=== PATIENT | female | born 1980 | race American Indian/Alaskan Native ===

== ENCOUNTER 2018-02-26 13:57 | Emergency (ER) | payer SELFPAY ==
[2018-02-26] MEDS ORDERED: DELTASONE PO ONE (15:19)
[2018-02-26] MEDS ORDERED: ATROVENT IH ONE (15:19)
[2018-02-26] MEDS ORDERED: PROVENTIL IH ONE (15:19)
[2018-02-26] MEDS ORDERED: TESSALON PERLES PO ONE (15:20)
--- NOTE | 2018-02-26 16:32 | XRay Report ---
FINAL REPORT EXAM: XR CHEST ROUTINE 2V HISTORY: sob, wheezing TECHNIQUE: 2 views of the chest. PRIORS: None. FINDINGS: The cardiomediastinal silhouette appears normal. The lungs are clear. The bones and soft tissues are unremarkable. IMPRESSION: No evidence of acute cardiopulmonary disease
--- NOTE | 2018-02-26 16:59 | Emergency Department Report ---
ED Asthma HPI - General Chief Complaint: Dyspnea/Respdistress Stated Complaint: DIFFICULTY BREATHING/CHEST PAIN Time Seen by Provider: 02/26/18 15:14 Source: patient Mode of arrival: Ambulatory Limitations: No Limitations - History of Present Illness Initial Comments: 37-year-old female with a past medical history asthma and (insulin and pills) diabetes presents to the Hospital complaining of wheezing or chest tightness 1 week progressively worsening. Chest tightness moderate in intensity and worse with inspiration during wheezing episodes. Patient also has sharp sternal chest pain as well for palpation, deep inspiration, and movement. Patient has an inhaler at home is not helping. Productive of clear sputum. No fever. No calf tenderness, edema, recent travel, history of DVT, or control pill use. Denies previous history of intubations. - Related Data Previous Rx's Medication Instructions Recorded Last Taken Type ALBUTEROL Inhaler [ProAir HFA 2 puff IH QID PRN #1 inhalation 02/26/18 Unknown Rx Inhaler] Azithromycin [Zithromax Z-RODOLFO] 1 dose PO DAILY 5 Days tab 02/26/18 Unknown Rx Benzonatate [Tessalon Perles] 100 mg PO Q8HR PRN #30 capsule 02/26/18 Unknown Rx Ibuprofen [Motrin] 800 mg PO Q8HR PRN #30 tablet 02/26/18 Unknown Rx amLODIPine [Norvasc] 5 mg PO DAILY #30 tab 02/26/18 Unknown Rx predniSONE [Deltasone] 40 mg PO QDAY 5 Days tab 02/26/18 Unknown Rx traMADol [Ultram 50 MG tab] 50 mg PO Q6HR PRN #20 tablet 02/26/18 Unknown Rx Allergies Allergy/AdvReac Type Severity Reaction Status Date / Time No Known Allergies Allergy Unverified 02/26/18 14:09 ED Review of Systems ROS: Stated complaint: DIFFICULTY BREATHING/CHEST PAIN Other details as noted in HPI Comment: All other systems reviewed and negative ED Past Medical Hx - Past Medical History Hx Diabetes: Yes Hx Asthma: Yes - Surgical History Past Surgical History?: No - Social History Smoking Status: Never Smoker Substance Use Type: None - Medications Home Medications: Home Medications Medication Instructions Recorded Confirmed Last Taken Type ALBUTEROL Inhaler [ProAir HFA 2 puff IH QID PRN #1 inhalation 02/26/18 Unknown Rx Inhaler] Azithromycin [Zithromax Z-RODOLFO] 1 dose PO DAILY 5 Days tab 02/26/18 Unknown Rx Benzonatate [Tessalon Perles] 100 mg PO Q8HR PRN #30 capsule 02/26/18 Unknown Rx Ibuprofen [Motrin] 800 mg PO Q8HR PRN #30 tablet 02/26/18 Unknown Rx amLODIPine [Norvasc] 5 mg PO DAILY #30 tab 02/26/18 Unknown Rx predniSONE [Deltasone] 40 mg PO QDAY 5 Days tab 02/26/18 Unknown Rx traMADol [Ultram 50 MG tab] 50 mg PO Q6HR PRN #20 tablet 02/26/18 Unknown Rx ED Physical Exam - General Limitations: No Limitations - Other Other exam information: General: No limitations, patient is alert in no acute distress Head exam: Atraumatic, normocephalic Eyes exam: Normal appearance ENT: Moist mucous membrane, normal oropharynx Neck exam: Normal inspection, full range of motion, no meningismus nontender Respiratory exam: Diminished breath sounds bilaterally, mild expiratory wheeze, cough or deep inspiration. Reproducible sternal chest wall tenderness Cardiovascular: Normal rate and rhythm Abdomen: Soft, nondistended, and nontender, with normal bowel sounds, no rebound, or guarding Extremity: Full range of motion normal inspection no deformity, no calf tenderness or edema Back: Normal Inspection, full range of motion, no tenderness Neurologic: Alert, oriented x3, cranial nerves intact, no motor or sensory deficit Psychiatric: normal affect, normal mood Skin: Warm, dry, intact ED Course Vital Signs 02/26/18 02/26/18 02/26/18 14:07 14:44 14:46 Temperature 98.8 F Pulse Rate 95 H 60 69 Pulse Rate [ Bilateral] Respiratory 18 21 29 H Rate Respiratory Rate [Bilateral ] Blood Pressure 156/101 Blood Pressure [Left] O2 Sat by Pulse 97 95 Oximetry 02/26/18 02/26/18 02/26/18 15:00 15:15 15:16 Temperature 98.1 F Pulse Rate 47 L 61 64 Pulse Rate [ Bilateral] Respiratory 13 22 17 Rate Respiratory Rate [Bilateral ] Blood Pressure 156/84 164/103 Blood Pressure 156/84 [Left] O2 Sat by Pulse 95 96 Oximetry 02/26/18 02/26/18 02/26/18 15:30 15:34 15:45 Temperature Pulse Rate 59 L 56 L Pulse Rate [ 94 H Bilateral] Respiratory 12 12 Rate Respiratory 16 Rate [Bilateral ] Blood Pressure 160/107 149/87 Blood Pressure [Left] O2 Sat by Pulse 95 96 Oximetry 02/26/18 16:12 Temperature Pulse Rate Pulse Rate [ 92 H Bilateral] Respiratory Rate Respiratory 16 Rate [Bilateral ] Blood Pressure Blood Pressure [Left] O2 Sat by Pulse Oximetry - Reevaluation(s) Reevaluation #1: 02/26/18 17:49 Pt received albuterol she received albuterol, Atrovent, prednisone, and Tessalon Perles with improvement in breathing or respiratory symptoms. She continues to have reproducible sternal chest wall tenderness. Patient is driving therefore Toradol IM ordered. ED Medical Decision Making - Radiology Data Radiology results: report reviewed Read by radiologist chest x-ray: No acute findings - Medical Decision Making Asthma exacerbation Patient received albuterol, Atrovent, prednisone, and Tessalon Perles with improvement Chest x-ray negative for infection Chest pain suggestive of costochondritis. Will be prescribed Motrin and tramadol. Denies history of seizures. Patient be treated for bronchitis/asthma Z-Rodolfo, prednisone, albuterol will be prescribed. Patient warned that prednisone may increase blood glucose and she will continue to monitor her sugar Patient blood pressure was elevated in the ED and she states it has been elevated this week when she checks it at the drugstore. She will be started on Norvasc and outpatient follow-up recommended - Differential Diagnosis asthma, pneumonia, bronchitis Critical Care Time: No Critical care attestation.: If time is entered above; I have spent that time in minutes in the direct care of this critically ill patient, excluding procedure time. ED Disposition Clinical Impression: Acute asthmatic bronchitis, Hypertension, Costochondritis Disposition: DC-01 TO HOME OR SELFCARE Is pt being admited?: No Condition: Stable Instructions: Hypertension (ED), Acute Bronchitis (ED), Costochondritis (ED) Additional Instructions: Continue to monitor your blood sugars very closely while taking the prednisone because prednisone may cause an increase in your blood sugar level. Your blood pressure was elevated today. You were started on blood pressure medication. Continue to monitor your blood pressure at home. It is very important that you follow up with the primary care doctor for further evaluation and blood pressure monitoring to determine if the current medication should be continued or adjusted. Please return if symptoms worsen as indicated by your discharge instructions. Prescriptions: ALBUTEROL Inhaler [ProAir HFA Inhaler] 2 puff IH QID PRN #1 inhalation PRN Reason: Shortness Of Breath amLODIPine [Norvasc] 5 mg PO DAILY #30 tab Azithromycin [Zithromax Z-RODOLFO] 1 dose PO DAILY 5 Days tab Benzonatate [Tessalon Perles] 100 mg PO Q8HR PRN #30 capsule PRN Reason: Cough Ibuprofen [Motrin] 800 mg PO Q8HR PRN #30 tablet PRN Reason: Pain predniSONE [Deltasone] 40 mg PO QDAY 5 Days tab traMADol [Ultram 50 MG tab] 50 mg PO Q6HR PRN #20 tablet PRN Reason: Pain Referrals: [facility] [Provider Group] - 3-5 Days TEMI PERRY MD [Staff Physician] - 3-5 Days Forms: Work/School Release Form(ED) Time of Disposition: 18:02
[2018-02-26] MEDS ORDERED: TORADOL IM ONE (17:48)
[2018-02-26] MEDS ORDERED: NORVASC PO ONE (18:00)
[2018-02-26 18:57] VITALS: BP 146/82
== END 2018-02-26 18:57 | disposition home or self-care (01) ==
LOC: ED 13:57
DX: J45.909 Unspecified asthma, uncomplicated (principal); M94.0 Chondrocostal junction syndrome [Tietze]; I10 Essential (primary) hypertension; E11.9 Type 2 diabetes mellitus without complications
CPT/HCPCS: 71046; 94644; 96372; 99283; J1885; J7512

== ENCOUNTER 2018-11-18 22:54 | Emergency (ER) | payer SELFPAY ==
[2018-11-18 23:55] LABS: Basophils # (Auto) 0.1 K/mm3 (0.0-0.1); Basophils % (Auto) 0.9 % (0.0-1.8); Eosinophils % (Auto) 0.6 % (0.0-4.3); Hematocrit 32.7 % (30.3-42.9); Hemoglobin 11.2 gm/dl (10.1-14.3); Lymphocytes # (Auto) 3.5 K/mm3 (1.2-5.4); Lymphocytes % (Auto) 48.9 % (13.4-35.0); Mean Corpuscular HGB Conc 34 % (30-34); Mean Corpuscular Volume 87 fl (79-97); Monocytes # (Auto) 0.3 K/mm3 (0.0-0.8); Monocytes % (Auto) 4.8 % (0.0-7.3); Platelet Count 226 K/mm3 (140-440); Red Blood Count 3.74 M/mm3 (3.65-5.03); Red Cell Distribution Width 13.5 % (13.2-15.2)
[2018-11-19 00:11] LABS: BUN/Creatinine Ratio 20; Blood Urea Nitrogen 12 mg/dL (7-17); Calcium 8.8 mg/dL (8.4-10.2); Hemolysis Index 19
--- NOTE | 2018-11-19 00:35 | XRay Report ---
FINAL REPORT EXAM: XR CHEST ROUTINE 2V HISTORY: shortness of breath COMPARISON: None available. FINDINGS:: Frontal and lateral views of the chest obtained. Cardiac silhouette is within normal limi ts. No focal consolidation or effusion. No pneumothorax. Visualized bony thorax is grossly intact. IMPRESSION:: No acute findings.
--- NOTE | 2018-11-19 02:42 | Emergency Department Report ---
ED Shortness of Breath HPI - General Chief Complaint: Dyspnea/Respdistress Stated Complaint: CHEST, BACK PAIN Time Seen by Provider: 11/19/18 02:32 Source: patient Mode of arrival: Ambulatory Limitations: No Limitations - History of Present Illness Initial Comments: Patient is a 38-year-old female with history of asthma. Patient presented to the ER complaining of cough, productive with greenish sputum and chills. Patient denied any nausea or vomiting. No chest pain, abdominal pain or other symptoms. MD Complaint: shortness of breath, cough Known History Of: asthma - Related Data Previous Rx's Medication Instructions Recorded Last Taken Type ALBUTEROL Inhaler (OR & NICU) 2 puff IH QID PRN #1 inhalation 02/26/18 Unknown Rx [ProAir HFA Inhaler] Azithromycin [Zithromax Z-RODOLFO] 1 dose PO DAILY 5 Days tab 02/26/18 Unknown Rx Benzonatate [Tessalon Perles] 100 mg PO Q8HR PRN #30 capsule 02/26/18 Unknown Rx Ibuprofen [Motrin] 800 mg PO Q8HR PRN #30 tablet 02/26/18 Unknown Rx amLODIPine [Norvasc] 5 mg PO DAILY #30 tab 02/26/18 Unknown Rx predniSONE [Deltasone] 40 mg PO QDAY 5 Days tab 02/26/18 Unknown Rx traMADol [Ultram 50 MG tab] 50 mg PO Q6HR PRN #20 tablet 02/26/18 Unknown Rx Allergies Allergy/AdvReac Type Severity Reaction Status Date / Time No Known Allergies Allergy Unverified 02/26/18 14:09 ED Review of Systems ROS: Stated complaint: CHEST, BACK PAIN Other details as noted in HPI Comment: All other systems reviewed and negative Constitutional: chills. denies: fever Respiratory: cough. denies: orthopnea, shortness of breath, SOB with exertion, SOB at rest, wheezing Cardiovascular: denies: chest pain, palpitations, dyspnea on exertion Gastrointestinal: denies: abdominal pain, nausea, vomiting, diarrhea, constipation, hematemesis, melena, hematochezia Neurological: denies: headache, weakness, numbness, paresthesias, confusion ED Past Medical Hx - Past Medical History Previous Medical History?: Yes Hx Diabetes: Yes Hx Asthma: Yes - Surgical History Past Surgical History?: No - Social History Smoking Status: Never Smoker Substance Use Type: Alcohol - Medications Home Medications: Home Medications Medication Instructions Recorded Confirmed Last Taken Type ALBUTEROL Inhaler (OR & NICU) 2 puff IH QID PRN #1 inhalation 02/26/18 Unknown Rx [ProAir HFA Inhaler] Azithromycin [Zithromax Z-RODOLFO] 1 dose PO DAILY 5 Days tab 02/26/18 Unknown Rx Benzonatate [Tessalon Perles] 100 mg PO Q8HR PRN #30 capsule 02/26/18 Unknown Rx Ibuprofen [Motrin] 800 mg PO Q8HR PRN #30 tablet 02/26/18 Unknown Rx amLODIPine [Norvasc] 5 mg PO DAILY #30 tab 02/26/18 Unknown Rx predniSONE [Deltasone] 40 mg PO QDAY 5 Days tab 02/26/18 Unknown Rx traMADol [Ultram 50 MG tab] 50 mg PO Q6HR PRN #20 tablet 02/26/18 Unknown Rx ED Physical Exam - General Limitations: No Limitations General appearance: alert, in no apparent distress - Head Head exam: Present: atraumatic, normocephalic, normal inspection - Eye Eye exam: Present: normal appearance - ENT ENT exam: Present: normal exam, normal orophraynx, mucous membranes moist - Neck Neck exam: Present: normal inspection, full ROM. Absent: tenderness, meningismus, lymphadenopathy, thyromegaly - Respiratory Respiratory exam: Present: normal lung sounds bilaterally. Absent: respiratory distress, wheezes, rales, rhonchi, stridor, chest wall tenderness, accessory muscle use, decreased breath sounds, prolonged expiratory - Cardiovascular Cardiovascular Exam: Present: regular rate, normal rhythm, normal heart sounds - GI/Abdominal GI/Abdominal exam: Present: soft, normal bowel sounds. Absent: distended, tenderness, guarding, rebound, rigid, organomegaly, mass, bruit, pulsatile mass, hernia - Extremities Exam Extremities exam: Present: normal inspection, full ROM, normal capillary refill. Absent: pedal edema, calf tenderness - Back Exam Back exam: Present: normal inspection, full ROM. Absent: CVA tenderness (R), CVA tenderness (L), muscle spasm, paraspinal tenderness, vertebral tenderness - Neurological Exam Neurological exam: Present: alert, oriented X3, CN II-XII intact, normal gait, reflexes normal - Skin Skin exam: Present: warm, intact, normal color ED Course Vital Signs 11/18/18 11/18/18 23:12 23:30 Temperature 98.1 F Pulse Rate 51 L 58 L Respiratory 16 Rate Blood Pressure 158/74 O2 Sat by Pulse 99 Oximetry ED Medical Decision Making - Lab Data Result diagrams: 11/18/18 23:33 11/18/18 23:33 - EKG Data -: EKG Interpreted by Me EKG shows normal: sinus rhythm Rate: bradycardia - EKG Data Interpretation: no acute changes - Radiology Data Radiology results: report reviewed Referring Physician: DIANE INGRAM Patient Name: KARLOS PEARSON Date of : 1980 Sex: Female Report Date: 2018-11-19 Report Status: [place] [address] XRay Report Signed Patient: KARLOS PEARSON MR#: [id number] : 1980 Acct:[id number] Age/Sex: 38 / F ADM Date: 11/18/18 Loc: ED Attending Dr: Ordering Physician: DIANE INGRAM MD Date of Service: 11/18/18 Procedure(s): XR chest routine 2V Accession Number(s): [id number] cc: DIANE INGRAM MD Fluoro Time In Minutes: FINAL REPORT EXAM: XR CHEST ROUTINE 2V HISTORY: shortness of breath COMPARISON: None available. FINDINGS:: Frontal and lateral views of the chest obtained. Cardiac silhouette is within normal limits. No focal consolidation or effusion. No pneumothorax. Visualized bony thorax is grossly intact. IMPRESSION:: No acute findings. Transcribed By: LMA Dictated By: JOHN FRAZIER MD Electronically Authenticated By: JOHN FRAZIER MD Signed Date/Time: 11/19/1834 DD/ TD/TT: 11/19/1836 Critical care attestation.: If time is entered above; I have spent that time in minutes in the direct care of this critically ill patient, excluding procedure time. ED Disposition Clinical Impression: Acute bronchitis Disposition: DC-01 TO HOME OR SELFCARE Is pt being admited?: No Condition: Stable Instructions: Acute Bronchitis (ED) Referrals: MANNY SARAVIA MD [Primary Care Provider] - 3-5 Days
[2018-11-19 03:11] VITALS: BP 138/76
== END 2018-11-19 03:12 | disposition home or self-care (01) ==
LOC: ED 22:54
DX: J20.9 Acute bronchitis, unspecified (principal); J45.909 Unspecified asthma, uncomplicated; E11.9 Type 2 diabetes mellitus without complications
CPT/HCPCS: 36415; 71046; 80048; 84484; 85025; 93005; 93010; 99284